=== PATIENT | female | born 1980 | race Caucasian/White ===

== ENCOUNTER → 2016-04-17 | Outpatient (CLI) | payer OTHER | LOC: FIMAGING 13:45 | PROVIDERS: ATTEND Midwife | DX: O09.522 Supervision of elderly multigravida, second trimester (principal); O09.812 Supervision of pregnancy resulting from assisted reproductive technology, second trimester; Z3A.21 21 weeks gestation of pregnancy ==

== ENCOUNTER → 2016-06-26 | Outpatient (CLI) | payer OTHER | LOC: FIMAGING 09:35 | PROVIDERS: ATTEND Midwife | DX: O09.523 Supervision of elderly multigravida, third trimester (principal); O09.813 Supervision of pregnancy resulting from assisted reproductive technology, third trimester; Z3A.31 31 weeks gestation of pregnancy ==

== ENCOUNTER 2016-08-22 16:30 | Inpatient (IN) | payer OTHER ==
[2016-08-22] MEDS ORDERED: EPSOM SALT 454 GM TP PRN (17:08)
[2016-08-22] MEDS ORDERED: OXYTOCIN/RINGERS LACTATE 1,000 ML IV PRN (17:08)
[2016-08-22] MEDS ORDERED: TERBUTALINE SULFATE 1 MG/ML VIAL IV PRN (17:08)
[2016-08-22] MEDS ORDERED: OLIVE OIL 118 ML BTL MISC PRN (17:08)
[2016-08-22] MEDS ORDERED: LR 1,000 ML IV PRN (17:08)
[2016-08-22] MEDS ORDERED: OLIVE OIL 118 ML BTL ONE (17:31)
[2016-08-22] MEDS ORDERED: AMMONIA AROMATIC 1 EACH AMP IH ONE (17:31)
[2016-08-22] MEDS ORDERED: LIDOCAINE 1% 300 MG/30 ML SDV ONE (17:31)
[2016-08-22] MEDS ORDERED: TERBUTALINE SULFATE 1 MG/ML VIAL ONE (17:31)
[2016-08-22] MEDS ORDERED: MISOPROSTOL 200 MCG TAB ONE (17:32)
--- NOTE | 2016-08-22 18:02 | PDGENHP ---
History and Physical - Chief Complaint 35 y.o. at 39 5/7 weeks for IOL - History of Present Illness 35 y.o. female for elective IOL History Information - Allergies/Home Medication List Allergies/Adverse Reactions: No Known Allergies Allergy (Unverified 02/17/14 17:21) Home Medications: Doxylamine Succinate [Unisom Sleep Aid] 25 mg PO 08/22/16 [Last Taken Unknown] Vit27&Calcium/Iron/FA [] 08/22/16 [Last Taken Unknown] I have personally reviewed and updated: family history, medical history, social history, surgical history - Past Medical History Additional medical history: depression - Surgical History Reports: no pertinent surgical hx Additional surgical history: wisdom teeth removal - Family History Positive for: cancer, vascular disease Additional family history: depression - Social History Smoking Status: Never smoked Alcohol Use: None Drug Use: None Review of Systems ROS: 10pt was reviewed & negative except for what was stated in HPI & below Constitutional: Reports: no symptoms EENMT: Reports: no symptoms Cardiac: Reports: no symptoms Respiratory: Reports: no symptoms Gastrointestinal: Reports: no symptoms Genitourinary: Reports: no symptoms Muscolosketal: Reports: no symptoms Skin: Reports: no symptoms Neurological: Reports: no symptoms Hematologic/Lymphatic: Reports: no symptoms Immunologic/Allergy: Reports: no symptoms Physical Exam Constitutional: no apparent distress Eyes: PERRL Ears, Nose, Mouth, Throat: hearing normal Cardiovascular: regular rate and rhythym, no murmur, rub, or gallop Respiratory: no respiratory distress, clear to auscultation Gastrointestinal: soft, non-tender abdomen Genitourinary: no bladder fullness, no bladder tenderness Skin: warm, normal color Musculoskeletal: full muscle strength Neurologic: AAOx3, sensation intact bilaterally Psychiatric: interacting appropriately Assessment & Plan Assessment: 35 y.o. at 39 5/7 weeks for IOL VSS- afebrile. NST-reactive CAT I SVE- 1.5/50/-3 IBOW. GBS NEG Plan: Admit to L&D for IOL. Melchor bulb placed in office. VS and EFM per protocol Begin pitocin for IOL at 0400 AM 08/23/16 Anticipate .
[2016-08-22] MEDS ORDERED: CALCIUM CARBONATE 500 MG CHEWABLE TAB PO PRN (18:55)
[2016-08-22] MEDS ORDERED: ZOLPIDEM TARTRATE 5 MG TAB PO PRN (18:55)
[2016-08-22] MEDS ORDERED: ACETAMINOPHEN 325 MG TAB PO PRN (18:55)
[2016-08-22] MEDS ORDERED: diphenhydrAMINE 25 MG CAP PO PRN (18:57)
[2016-08-22] MEDS ORDERED: UNISOM PO PRN (20:19)
[2016-08-22] MEDS ORDERED: DICLEGIS PO PRN (20:20)
[2016-08-22 21:02] LABS: % IMMATURE GRANULYOCYTES 0.7 % (0.0-1.1); ABSOLUTE IMMATURE GRANULOCYTES 0.09 10^3/uL (0.00-0.10); ADD DIFF? NO; ADD MORPH? NO; ADD SCAN? NO; ATYPICAL LYMPHOCYTE FLAG 0 (0-99); FRAGMENT RBC FLAG 0 (0-99); HEMATOCRIT 34.1 % (38.0-47.0); HEMOGLOBIN 11.4 g/dL (12.6-16.3); LEFT SHIFT FLG 0 (0-99); LIPEMIA HEMOLYSIS FLAG 80 (0-99); MEAN CELL HEMOGLOBIN 28.1 pg (27.9-34.1); MEAN CELL HEMOGLOBIN CONCENTR. 33.4 g/dL (32.4-36.7); MEAN CELL VOLUME 84.2 fL (81.5-99.8); MEAN PLATELET VOLUME 10.1 fL (8.7-11.7); PLATELET CLUMPS FLAG 0 (0-99); PLATELET COUNT 178 10^3/uL (150-400); RED BLOOD CELL COUNT 4.05 10^6/uL (4.18-5.33); RED CELL DISTRIBUTION WIDTH 14.2 % (11.5-15.2)
[2016-08-22] MEDS ORDERED: DOXYLAMINE SUCCINATE 25 MG PO PRN (21:04)
[2016-08-23] MEDS ORDERED: OXYTOCIN/LR *STANDARD DOSE PROTOCOL IV SCH (04:00)
--- NOTE | 2016-08-23 09:45 | OBPROG ---
OBG Labor Progress Note Assessment/Plan: Assessment: 35 yo @ 40 0/7, admitted for IOL Plan: 08/23/16 09:43 FWB reassuring. GBS neg. Desires epidrual. Subjective: 35 yo @ 40 0/7, admitted for IOL Objective: 08/22/16 20:51 Patient ABO/Rh O POSITIVE 08/22/16 20:51 VSS - SVE Dilation (cm): 4 Effacement (%): 75 Station: -1 - Procedures Non-surgical Procedures: Amniotomy Oxytocin Orders Assessment - Pre-Induction/Augmentation Assessment Gestational Age: 39 week(s) and 6 day(s) ICD10 Worksheet Patient Problems: Problems Problem Status Onset Elective induction of labor planned Acute
[2016-08-23] MEDS ORDERED: fentaNYL 2MCG/ML/BUP 0.1% RTU 100 ML BAG EP ONE (10:05)
[2016-08-23] MEDS ORDERED: BUPIVACAINE 0.25% 30 ML SDV ONE (10:05)
[2016-08-23] MEDS ORDERED: PHENYLEPHRINE HCL 100 MCG/ML SYR ONE (10:05)
--- NOTE | 2016-08-23 11:21 | PREANESOB ---
Obstetric Pre-Anesthesia Info - General Info Proposed Procedure: Labor and delivery with pitocin. : 1 Para: 0 WBD: 40 - Info Status: Full Term Monitors: External FHR Baseline (bpm): 140 FHR Pattern: Reassuring - Labor Status Cervical Dilation per last OB SVE: 4 Station per last OB SVE: -1 Pitocin: In Use Indications for Labor Analgesia: Induction of Labor, Pain Control Labor Epidural: Proposed Anesthesia ROS: IVF . Allergies/Adverse Reactions: Allergy/AdvReac Type Severity Reaction Status Date / Time No Known Allergies Allergy Unverified 08/22/16 18:54 Home Medications: Medication Instructions Recorded B12/Levomefolate Calcium/B-6 1 each PO 08/22/16 [Foltx Tablet] Doxylamine Succinate [Unisom Sleep 25 mg PO 08/22/16 Aid] Doxylamine/Pyridoxine HCl (B6) 2 each PO DAILY 08/22/16 [Diclegis Dr 10-10 mg Tablet] Vit27&Calcium/Iron/FA 1 tab PO DAILY 08/22/16 [] Visit Medications: Generic Name Dose Route Start Last Admin Trade Name Freq PRN Reason Stop Dose Admin Acetaminophen 650 mg 08/22/16 18:55 Tylenol PO 02/18/17 18:54 Q6 PRN Pain, Mild Calcium Carbonate 500 - 1,000 mg 08/22/16 18:55 Tums PO 02/18/17 18:54 Q4 PRN GERD Diphenhydramine HCl 25 mg 08/22/16 18:57 Benadryl PO 02/18/17 18:56 HS PRN Sleep/Insomnia Lactated Ringer's 1,000 mls @ 0 mls/hr 08/22/16 17:08 08/23/16 04:54 Lr IV 02/18/17 17:07 1,000 mls PRN PRN Administration SEE PROTOCOL CONDITIONS Protocol Per Protocol Oxytocin/Lactated Ringer's 1,000 mls @ 150 mls/hr 08/22/16 17:08 Pitocin 20 Units/Lr (Premix) IV PRN PRN Post- bleeding Oxytocin/Lactated Ringer's 500 mls @ 0 mls/hr 08/23/16 04:00 08/23/16 04:54 Pitocin 30 Units/Lr (Premix) IV 02/19/17 03:59 500 mls CONT ARY Administration Protocol Per Protocol Ibuprofen 600 mg 08/22/16 17:08 Motrin PO 02/18/17 17:07 Q6HRS PRN post , inflammation Magnesium Sulfate 454 gm 08/22/16 17:08 Epsom Salt TP 02/18/17 17:07 Q1H PRN perineal discomfort Miscellaneous Medication 0 ea 08/22/16 20:20 Non-Formulary PO 02/18/17 20:19 Q8H PRN Nausea/Vomiting, Use 1st Miscellaneous Medication 1 ea 08/22/16 21:04 08/22/16 21:37 Non-Formulary PO 02/18/17 20:18 25 mg HS PRN Administration INSOMNIA [place] Oil 118 ml 08/22/16 17:08 Sweet Oil MISC 02/18/17 17:07 ONCE PRN preneal massage Terbutaline Sulfate 0.25 mg 08/22/16 17:08 Brethine IV 02/18/17 17:07 ONCE PRN Tachysystole Zolpidem Tartrate 5 mg 08/22/16 18:55 Ambien PO 02/18/17 18:54 HS PRN Sleep/Insomnia Discontinued Medications Generic Name Dose Route Start Last Admin Trade Name Freq PRN Reason Stop Dose Admin Ammonia (Aromatic Spirit) Confirm 08/22/16 17:31 Ammonia Aromatic Administered 08/22/16 17:32 Dose 1 each IH .STK-MED ONE Bupivacaine HCl Confirm 08/23/16 10:05 Sensorcaine 0.25% Sdv Administered 08/23/16 10:06 Dose 30 ml .ROUTE .STK-MED ONE Fentanyl/Bupivacaine HCl Confirm 08/23/16 10:05 Fentanyl/Bupivacaine/Ns 2 Mcg/Ml 0.1% (Premix Administered 08/23/16 10:06 Dose 100 ml EP .STK-MED ONE Lidocaine HCl Confirm 08/22/16 17:31 Lidocaine Hcl 1% Administered 08/22/16 17:32 Dose 300 mg .ROUTE .STK-MED ONE Miscellaneous Medication 0 ea 08/22/16 20:19 Non-Formulary PO 02/18/17 20:18 HS PRN INSOMNIA Misoprostol Confirm 08/22/16 17:32 Cytotec Administered 08/22/16 17:33 Dose 1,000 mcg .ROUTE .STK-MED ONE [place] Oil Confirm 08/22/16 17:31 Sweet Oil Administered 08/22/16 17:32 Dose 118 ml .ROUTE .STK-MED ONE Phenylephrine HCl Confirm 08/23/16 10:05 Neosynephrine Administered 08/23/16 10:06 Dose 1,000 mcg .ROUTE .STK-MED ONE Terbutaline Sulfate Confirm 08/22/16 17:31 Brethine Administered 08/22/16 17:32 Dose 1 mg .ROUTE .STK-MED ONE - Anesthesia History Response to Local Anesthetics: Normal Anesthesia & Operative History: No Prior Problems Family Anesthesia History: Negative - Social History Substance Use/Abuse: Denies - Focused Exam Blood Pressure: 117/68 Heart Rate: 90 Height/Weight (Nursing): Height 170.18 cm Weight 95.708 kg Airway: No abnormalities Physical Exam: Within normal limits. ASA Status: II Labs: 08/22/16 20:51 Patient ABO/Rh O POSITIVE 08/22/16 20:51 - Plan Consent Signed and on Chart: Yes Patient/Guardian Understands and Agrees to Plan: Yes Urgent/Emergent Case: Felisa morrison completed preop but documented later for safe timely pt care
[2016-08-23] MEDS ORDERED: PHENYLEPHRINE HCL 100 MCG/ML SYR IVP PRN (11:29)
[2016-08-23] MEDS ORDERED: ONDANSETRON 4 MG/2 ML VIAL IVP PRN (11:29)
--- NOTE | 2016-08-23 11:29 | POSTANESTH ---
Post Anesthetic Evaluation Cardiovascular Status: Normal, Stable Respiratory Status: Normal, Stable, Similar to Pre-op Cond. Level of Consciousness/Mental Status: Can Participate in Eval, Alert and Oriented Pain Control: Adequate, Prn Tx Ordered Nausea/Vomiting Control: Adequate, Prn Tx Ordered Complications Possibly Related to Anesthesia: None Noted
[2016-08-23] MEDS ORDERED: LR 500 ML IV SCH (11:30)
[2016-08-23] MEDS ORDERED: fentaNYL 2MCG/ML/BUP 0.1% RTU 100 ML EP SCH (11:30)
--- NOTE | 2016-08-23 12:40 | OBPROG ---
OBG Labor Progress Note Assessment/Plan: Assessment: 35 yo @ 40 0/7, admitted for IOL Plan: FWB reassuring. GBS neg. Expect . 08/23/16 12:39 Subjective: 35 yo @ 40 0/7, admitted for IOL Objective: 08/22/16 20:51 Patient ABO/Rh O POSITIVE 08/22/16 20:51 Temp Pulse Resp BP Pulse Ox 90 117/68 08/23/16 11:28 08/23/16 11:28 vss - SVE Dilation (cm): 6 Effacement (%): 90 Station: 0 Rodríguez Current Contraction Pattern: Regular FHR (bpm): 130 FHR Pattern Variability: Moderate FHR Category: 2 Membranes: AROM Amniotic Fluid Color: Meconium Stained - Procedures Non-surgical Procedures: Amniotomy, IUPC Oxytocin Orders Assessment - Pre-Induction/Augmentation Assessment Gestational Age: 39 week(s) and 6 day(s) ICD10 Worksheet Patient Problems: Problems Problem Status Onset Elective induction of labor planned Acute
[2016-08-23] MEDS ORDERED: GENTAMICIN PHARMACY TO DOSE MISC SCH (15:15)
[2016-08-23] MEDS ORDERED: AMPICILLIN 500 MG SDV IV SCH (15:15)
[2016-08-23] MEDS: AMPICILLIN SODIUM 2 GM in NS 100 ML IV SCH ×2 (15:55→23:18)
[2016-08-23] MEDS: D5W IV SCH (16:30)
[2016-08-23] MEDS: GENTAMICIN SULFATE IV SCH (16:30)
[2016-08-23] MEDS ORDERED: METHYLERGONOVINE MAL 0.2 MG/ML INJ ONE (17:40)
[2016-08-23] MEDS ORDERED: fentaNYL 100 MCG/2 ML INJ ONE (18:21)
[2016-08-23] MEDS ORDERED: LIDO/EPI 2% **for epidural** 20 ML SDV ONE (18:22)
[2016-08-23] MEDS ORDERED: HEMABATE 250 MCG/1 ML AMP IM ONE ×2 (18:51→19:13)
[2016-08-23] MEDS ORDERED: OXYTOCIN 100 UNITS/10 ML VIAL ONE (19:07)
[2016-08-23] MEDS ORDERED: HYDROCORTISONE 0.5% CREAM TP PRN (19:12)
[2016-08-23] MEDS ORDERED: METHYLERGONOVINE MAL 0.2 MG/ML INJ IM ONE (19:12)
[2016-08-23] MEDS ORDERED: SIMETHICONE 80 MG TAB CHEW PO PRN (19:12)
[2016-08-23] MEDS ORDERED: MISOPROSTOL 200 MCG TAB PR ONE (19:13)
[2016-08-23] MEDS ORDERED: DIPHENOXYLATE/ATROPINE LOMOTIL 1 TAB PO PRN (19:13)
--- NOTE | 2016-08-23 19:22 | OBDEL ---
Info Type: Vaginal GBS+: No Indications for Delivery: Elective Vaginal Delivery - Labor and Delivery Onset of Contractions Date: 08/23/16 Onset of Contractions Time: :30 Onset of Contractions Type: Induced Rupture of Membranes Date: 08/23/16 Rupture of Membranes Time: : Rupture of Membranes Type: Artificial Amniotic Fluid Color: Meconium Stained Dilation Complete Date: 08/23/16 Dilation Complete Time: 15:00 Placenta Delivery Date: 08/23/16 Non-surgical Procedures: Amniotomy, IUPC Laceration: 3rd Degree Repair: 2-0, 3-0, 4-0, Vicryl Vaginal Sponge Count Correct: Yes Vaginal Needle Count Correct: Yes Vaginal Sweep Performed: Yes EBL: 800 Ml Delivery Events: Retained Placenta Delivery Comment: Pt progressed to complete, complete and plus +2 station, complained of maternal exhaustion. Patient agreed to vacuum extraction. With 6 pulls, 3 popoffs, the patient delivered a viable male infant with apgars of 8,9. The patient had cord evulsion and adherent placenta and required manual extraction and curretage , please see separate operative note for details. Total EBL for 800 ml, complete 3rd degree laceration repaired in the usual fashion. - Medications Labor Augmentation/Induction Methods Used: Pitocin Labor Augmentation/Induction Indication: Elective Assissted Delivery Assisted Delivery Type: Vacuum Station: +2 Pop offs (Total): 3 Pulls (Total): 6 Data Rodríguez Delivery Date: 08/23/16 Delivery Time: 17:55 CANDELARIO: 08/23/16 Gestational Age: 40 week(s) and 0 day(s) Sex of : Male Score (1 Min): 8 Score (5 Min): 9 ICD10 Worksheet Patient Problems: Problems Problem Status Onset Elective induction of labor planned Acute
--- NOTE | 2016-08-23 19:24 | OBGCSDC ---
General Delivery Information - General Info : 1 Para: 0 Delivery Physician/CNM: Yelena Shook Admission Date: 08/22/16 Labs: Patient ABO/Rh O POSITIVE 08/22/16 20:51 Hct 34.1 % (38.0-47.0) L 08/22/16 20:51 Vaginal - Diagnosis Labor: Induced Rupture of Membranes Type: Artificial Amniotic Fluid Color: Meconium Stained Laceration: 3rd Degree Repair: 2-0, 3-0, 4-0, Vicryl Delivery Events: Retained Placenta - Operations/Procedures Assisted Delivery Type: Vacuum Non-surgical Procedures: Amniotomy, IUPC - Hospital Course Antepartum: IVF Intrapartum: maternal exhaustion requiring vacuum assistance, chorioamnitis : adherent placenta, requiring d&c - Delivery Type: Vaginal Non-surgical Procedures: Amniotomy, IUPC EBL: 800 Ml [place] Data Rodríguez Delivery Date: 08/23/16 Delivery Time: 17:55 CANDELARIO: 08/23/16 Gestational Age: 40 week(s) and 0 day(s) Sex of Infant: Male Score (1 Min): 8 Score (5 Min): 9
[2016-08-23 19:41] LABS: % IMMATURE GRANULYOCYTES 1.2 % (0.0-1.1); ABSOLUTE IMMATURE GRANULOCYTES 0.22 10^3/uL (0.00-0.10); ADD DIFF? NO; ADD MORPH? NO; ADD SCAN? NO; ATYPICAL LYMPHOCYTE FLAG 0 (0-99); FRAGMENT RBC FLAG 0 (0-99); HEMATOCRIT 29.9 % (38.0-47.0); HEMOGLOBIN 10.1 g/dL (12.6-16.3); LEFT SHIFT FLG 20 (0-99); LIPEMIA HEMOLYSIS FLAG 90 (0-99); MEAN CELL HEMOGLOBIN 28.8 pg (27.9-34.1); MEAN CELL HEMOGLOBIN CONCENTR. 33.8 g/dL (32.4-36.7); MEAN CELL VOLUME 85.2 fL (81.5-99.8); PLATELET CLUMPS FLAG 0 (0-99); PLATELET COUNT 126 10^3/uL (150-400); RED BLOOD CELL COUNT 3.51 10^6/uL (4.18-5.33); RED CELL DISTRIBUTION WIDTH 13.9 % (11.5-15.2)
[2016-08-23] MEDS ORDERED: MEPERIDINE 25 MG/ML SYR IVP PRN (19:52)
[2016-08-23] MEDS ORDERED: fentaNYL 100 MCG/2 ML INJ IVP PRN (19:52)
[2016-08-23] MEDS ORDERED: METOCLOPRAMIDE 10 MG/2 ML VIAL IVP PRN (19:52)
[2016-08-23] MEDS: IBUPROFEN 600 MG TAB PO PRN (20:03)
[2016-08-23] MEDS: HYDROCODONE/APAP 5/325 TAB PO PRN (22:15)
--- NOTE | 2016-08-23 22:36 | GOP ---
[f rep st] OPERATIVE REPORT DATE OF OPERATION: 08/23/2016 SURGEON: Yelena Saha MD PREOPERATIVE DIAGNOSIS: Retained placenta. POSTOPERATIVE DIAGNOSIS: Retained placenta. PROCEDURE PERFORMED: Manual extraction of the placenta and uterine curettage. FINDINGS: retained placenta, no evidence of retained placenta after manual extractions ESTIMATED BLOOD LOSS: 400 mL. INDICATIONS: The patient is a 35-year-old G1, P1 female, who delivered via vacuum-assisted vaginal delivery, who had adherent and retained placenta after delivery, and recommended proceeding to the OR for removal of placenta and curettage, which the patient agreed to. DESCRIPTION OF PROCEDURE: The patient was taken to the operating room where she was prepped and draped in normal sterile fashion in the high dorsal lithotomy position. A surgical time-out was performed verifying the patient's name, date of , planned procedure, and site. A Melchor catheter was placed in the patient's bladder prior to the procedure. A short weighted speculum was placed in the patient's vagina. The placenta was manually removed and ultrasound was performed after extraction to verify there was no retained tissue , which the ultrasound appeared clear, and limited curettage took place as well. Total EBL was 400 mL. The patient also had finish of the repair of a 3rd -degree laceration. All counts were correct x2. The patient tolerated the procedure well and was stable to recovery room. COMPLICATIONS: None. DISPOSITION: Stable to recovery room. /[id number]/MODL MTDD
[2016-08-24] MEDS: HYDROCODONE/APAP 5/325 TAB PO PRN ×2 (02:55→07:09)
[2016-08-24] MEDS: IBUPROFEN 600 MG TAB PO PRN ×4 (02:56→21:58)
[2016-08-24 05:59] LABS: % IMMATURE GRANULYOCYTES 0.7 % (0.0-1.1); ABSOLUTE IMMATURE GRANULOCYTES 0.12 10^3/uL (0.00-0.10); ADD DIFF? NO; ADD MORPH? NO; ADD SCAN? NO; ATYPICAL LYMPHOCYTE FLAG 0 (0-99); FRAGMENT RBC FLAG 0 (0-99); HEMATOCRIT 24.8 % (38.0-47.0); HEMOGLOBIN 8.4 g/dL (12.6-16.3); LEFT SHIFT FLG 10 (0-99); LIPEMIA HEMOLYSIS FLAG 90 (0-99); MEAN CELL HEMOGLOBIN 28.7 pg (27.9-34.1); MEAN CELL HEMOGLOBIN CONCENTR. 33.9 g/dL (32.4-36.7); MEAN CELL VOLUME 84.6 fL (81.5-99.8); MEAN PLATELET VOLUME 9.9 fL (8.7-11.7); PLATELET CLUMPS FLAG 0 (0-99); PLATELET COUNT 150 10^3/uL (150-400); RED BLOOD CELL COUNT 2.93 10^6/uL (4.18-5.33); RED CELL DISTRIBUTION WIDTH 14.1 % (11.5-15.2)
[2016-08-24] MEDS: AMPICILLIN SODIUM 2 GM in NS 100 ML IV SCH ×2 (06:31→14:23)
[2016-08-24] MEDS: DOCUSATE SODIUM 100 MG CAP PO PRN ×2 (09:23→21:58)
[2016-08-24 12:44] LABS: HEMATOCRIT 25.3 % (38.0-47.0); HEMOGLOBIN 8.5 g/dL (12.6-16.3); MEAN CELL HEMOGLOBIN 28.4 pg (27.9-34.1); MEAN CELL HEMOGLOBIN CONCENTR. 33.6 g/dL (32.4-36.7); MEAN CELL VOLUME 84.6 fL (81.5-99.8); RED BLOOD CELL COUNT 2.99 10^6/uL (4.18-5.33); RED CELL DISTRIBUTION WIDTH 14.4 % (11.5-15.2)
[2016-08-24 13:01] LABS: ANION GAP 3 mEq/L (8-16); CALCIUM 8.4 mg/dL (8.5-10.4); CARBON DIOXIDE 25 mEq/l (22-31); CHLORIDE 104 mEq/L (97-110); CREATININE 0.6 mg/dL (0.6-1.0); GLOMERULAR FILTRATION RATE > 60; GLUCOSE 86 mg/dL (70-100); POTASSIUM 4.1 mEq/L (3.5-5.2); SODIUM 132 mEq/L (134-144)
[2016-08-24] MEDS: GENTAMICIN SULFATE IV SCH (16:46)
[2016-08-24] MEDS: D5W IV SCH (16:46)
--- NOTE | 2016-08-24 19:07 | OBPP ---
Progress Note Assessment/Plan: Assessment: PPD#1 s/p VAVD c/b 3rd degree laceration, retained placenta s/p D&C, chorio, PPH EBL 800 ml VSS, UOP appropriate, Hgb stable at 8.5 Currently no indication for transfusion No fevers Recovering appropriately Plan: D/C [place] cath today Pain medication prn Pumping/ Monitor for symptomatic anemia D/C antibiotics Likely not ready for discharge home until PPD#3 given the complications as noted above 08/24/16 19:05 Subjective: Tired and sore, but slowly starting to feel better. Has ambulated. Bleeding appropriate. [place] in place. Objective: 08/24/16 12:25 08/24/16 12:25 Patient ABO/Rh O POSITIVE 08/22/16 20:51 Temp Pulse Resp BP Pulse Ox 36.7 C 89 18 90/57 L 93 08/24/16 16:00 08/24/16 07:00 08/24/16 07:00 08/24/16 07:00 08/24/16 02:58 Gen: alert, no acute distress Resp: unlabored CV: RRR Abd: soft, appropriately tender, nondistended, uterus firm 1 cm below U Ext: 2+ edema to thighs, symmetric, warm/dry Vital Signs Temp Pulse Resp BP Pulse Ox 36.7 C 89 18 90/57 L 93 08/24/16 16:00 08/24/16 07:00 08/24/16 07:00 08/24/16 07:00 08/24/16 02:58 Laboratory Results 08/24/16 12:25 08/24/16 12:25 08/23/16 08/24/16 08/25/16 05:59 05:59 05:59 Intake Total 130 360 Output Total 1450 2050 Balance -1320 -1690 Uterine Position/Fundal Height: Umbilicus -1 Uterine Tone: Firm
[2016-08-25] MEDS: IBUPROFEN 600 MG TAB PO PRN ×4 (04:10→23:21)
[2016-08-25] MEDS: DOCUSATE SODIUM 100 MG CAP PO PRN (09:15)
--- NOTE | 2016-08-25 09:40 | OBPP ---
Progress Note Assessment/Plan: Assessment: PPD#2 s/p VAVD c/b 3rd degree laceration, retained placenta s/p D&C, chorio, PPH EBL 800 ml VSS, UOP appropriate, Hgb stable at 8.5 No fevers Recovering appropriately Urinary incontinence s/p [place] removal, slowly improving. No concern for UTI as she has been on amp/gent Rh pos Plan: Pain medication prn Pumping/ Monitor for symptomatic anemia s/p antibiotics Discussed incontinence should improve slowly as swelling goes down and sensation returns, reviewed kegel exercises, if not improved by 6 weeks can initiate pelvic PT Not ready for discharge home until PPD#3 given the complications as noted above , still needs help with and to increase ambulation Subjective: Feeling better and better every day. Biggest concern is lack of ability to control urine after catheter is out. Just this morning was able to make it to bathroom, but previously hasn't been able to make it. Still feels some lack of sensation in pelvic area. BF going well. No heavy bleeding. Lower extremity edema improving. Hoping baby will be ready to to go home in 1-2 days Objective: 08/24/16 12:25 08/24/16 12:25 Patient ABO/Rh O POSITIVE 08/22/16 20:51 Temp Pulse Resp BP Pulse Ox 36.9 C 93 20 112/68 94 08/25/16 08:40 08/25/16 08:40 08/25/16 08:40 08/25/16 08:40 08/25/16 08:40 gen: NAD, alert, awake Resp: unlabored CV: RRR Abd: soft, nontender, uterus firm below U Ext: 2+ edema to calves
[2016-08-26] MEDS: IBUPROFEN 600 MG TAB PO PRN ×2 (05:51→12:55)
[2016-08-26 08:44] VITALS: BP 105/66; PULSE 79; RESP 17; TEMP 97.2; O2SAT 95
--- NOTE | 2016-08-26 10:05 | OBGCSDC ---
General Delivery Information - General Info : 1 Para: 1 Delivery Physician/CNM: Yelena Shook Admission Date: 08/22/16 Labs: Patient ABO/Rh O POSITIVE 08/22/16 20:51 Hct 25.3 % (38.0-47.0) L 08/24/16 12:25 Vaginal - Diagnosis Labor: Induced Rupture of Membranes Type: Artificial Amniotic Fluid Color: Meconium Stained Laceration: 3rd Degree Repair: 2-0, 3-0, 4-0, Vicryl Delivery Events: Post Hemorrhage, Retained Placenta - Operations/Procedures Assisted Delivery Type: Vacuum Non-surgical Procedures: Amniotomy, IUPC L&D Analgesia/Anesthesia Type: Epidural - Hospital Course Antepartum: Uncomplicated first . elective induction at 39 5/7 weeks Intrapartum: VAVD c/b 3rd degree laceration, retained placenta s/p D&C, chorio, PPH EBL 800 ml : Home PPD#3. Received abx x 24 hours and remained afebrile. Hct stable at 25, asymptomatic. Will supplement until milk comes in. Slow improvement in lower extremity edema which was also present prior to delivery. Urinary incontinence s /p removal of [place] catheter, slowly improving, able to make it to bathroom with timed voiding. - Delivery Non-surgical Procedures: Amniotomy, IUPC L&D Analgesia/Anesthesia Type: Epidural [place] Data Rodríguez Delivery Date: 08/23/16 Delivery Time: 17:58 CANDELARIO: 08/23/16 Gestational Age: 40 week(s) and 3 day(s) Sex of : Male Weight (gm): 3870 kg Score (1 Min): 8 Score (5 Min): 9 Discharge Information - Discharge Information Discharge Medications: Iron, Ibuprofen, Other (Specify) (stool softener) Condition: Good Instruction/Follow Up: Two Weeks Discharge Physician/CNM: Margy Bhandari
[2016-08-26] MEDS: DOCUSATE SODIUM 100 MG CAP PO PRN (12:55)
== END 2016-08-26 15:53 | disposition home or self-care (01) | DRG 767 ==
LOC: FLD 16:30 → FOB 08-23 20:27
PROVIDERS: ADMIT Midwife; ATTEND Midwife
PROC: 3E033VJ Introduction of Other Hormone into Peripheral Vein, Percutaneous Approach (ICD-10-PCS; principal; 2016-08-23)
PROC: 0DQR0ZZ Repair Anal Sphincter, Open Approach (ICD-10-PCS; principal; 2016-08-23)
PROC: 10D17ZZ Extraction of Products of Conception, Retained, Via Natural or Artificial Opening (ICD-10-PCS; principal; 2016-08-23)
PROC: 10907ZC Drainage of Amniotic Fluid, Therapeutic from Products of Conception, Via Natural or Artificial Opening (ICD-10-PCS; principal; 2016-08-23)
PROC: 10D07Z6 Extraction of Products of Conception, Vacuum, Via Natural or Artificial Opening (ICD-10-PCS; principal; 2016-08-23)
DX: O41.1230 Chorioamnionitis, third trimester, not applicable or unspecified (principal); O70.20 Third degree perineal laceration during delivery, unspecified; O72.0 Third-stage hemorrhage; Z37.0 Single live birth; Z3A.40 40 weeks gestation of pregnancy; O75.81 Maternal exhaustion complicating labor and delivery
CPT/HCPCS: J0290; J2210; J2370; J2405; J2590; J3010; J3105

== ENCOUNTER 2016-11-02 16:08 | Emergency (ER) | payer OTHER ==
[2016-11-02] MEDS ORDERED: FAMOTIDINE 20 MG/NACL 50 ML IV ONE (16:12)
[2016-11-02] MEDS ORDERED: NS 1,000 ML IV ONE (16:12)
[2016-11-02] MEDS ORDERED: HYDROmorphONE/DILAUDID 1 MG/ML INJ IVP ONE (16:12)
[2016-11-02] MEDS ORDERED: ONDANSETRON 4 MG/2 ML VIAL IVP ONE (16:12)
[2016-11-02 16:18] VITALS: RESP 18; O2SAT 97
--- NOTE | 2016-11-02 16:41 | EDPHY ---
H & P Time Seen by Provider: 11/02/16 16:12 HPI/ROS: HPI Abdominal pain. 35-year-old female by private vehicle from the office of her primary care physician at [facility]. Patient is 10 weeks . Normal spontaneous vaginal delivery. She did require a D and C secondary to a retained placenta. She presents to the emergency department from Clinic with complaint of right mid abdominal pain which started late Saturday night early morning and has persisted since that time and been intermittent in intensity. She reports the pain was worse today associated with some nausea but no vomiting. She was sent to our emergency department to be evaluated for possible appendicitis verses gallbladder pathology. She denies any prior abdominal surgical history. She had a bowel movement this morning which was described as normal and with no relief in her discomfort. No bloody or melenic stool. No fever. No urinary complaints. ROS: Constitutional: No fever, no chills. No weakness. Eyes: No discharge. No changes in vision. ENT: No sore throat. No nasal congestion or rhinorrhea. Respiratory: No cough. No shortness of breath. Cardiac: No chest pain, no palpitations. Gastrointestinal: As above, no diarrhea. Genitourinary: No hematuria. No dysuria or increased frequency with urination. Musculoskeletal: No back pain. No neck pain. No myalgias or arthralgias. Skin: No rashes. Neurological: No headache. No focal weakness or altered sensation. Past medical history: As above. Social history: . Nonsmoker. No alcohol. Physical Exam: General Appearance: Alert, no distress. This patient is responding to questions appropriately and in full sentences. This patient appears well- hydrated and well-nourished. Eyes: Pupils equal and round no pallor or injection. No lid edema, erythema or injection. Respiratory: There are no retractions, lungs are clear to auscultation with good air movement bilaterally. Cardiovascular: Regular rate and rhythm. No murmur. Gastrointestinal: Abdomen is soft with moderate right lower quadrant tenderness on palpation, she is not guarding, no masses, bowel sounds normal. No focal tenderness at McBurney's point. No Nicholson sign. Neurological: Motor sensory function is grossly intact. Cranial nerves are normal. Gait is normal. Skin: Warm and dry, no rashes. Musculoskeletal: Neck is supple and nontender. Extremities are symmetrical. All joints range without pain or impingement. Psychiatric: No agitation. No depression. Database: EKG: Imaging: CT abdomen and pelvis with IV contrast: There is some free fluid in the right cul-de-sac next to the right ovary indicative of probable ruptured ovarian cyst. The appendix is well visualized and is normal. No evidence of gallbladder pathology. Study is otherwise normal. Results were discussed with staff radiologist Dr. Tanvir Brown. Procedures: Emergency department course: IV placed. She was placed on a monitor. She was started on IV normal saline with 500 cc to 1 L to be given over the next hour. She was initially given 0.5 mg of IV hydromorphone, 4 mg of IV Zofran and 20 mg of IV Pepcid. She will be sent for CT imaging to evaluate for appendicitis. She endorses this plan. 6:30 p.m., patient re-evaluated. Resting comfortably at this time. Her is in the room. Results of her blood work as well as CAT scan were discussed with her and her . Diagnosis of likely ruptured ovarian cyst discussed. She is feeling better at this time. Repeat exam she is soft with mild tenderness in the right adnexal area. She feels comfortable going home and I feel she is safe for discharge. Follow-up and return to emergency department precautions discussed with her. All of her questions were answered. She was discharged home in good condition with her . I discussed ibuprofen dosing. She will also receive a limited prescription for Haines if she requires additional pain medication as well as Zofran for nausea. Differential Diagnosis: The differential diagnosis on this patient includes but is not limited to appendicitis, ovarian cyst, ovarian torsion, volvulus, cholecystitis, biliary colic. This represents a partial list of diagnoses considered. These considerations are based on history, physical exam, past history, reassessment and diagnostic testing. Smoking Status: Never smoked Constitutional: Initial Vital Signs Temperature (C) 37.1 C 11/02/16 16:13 Heart Rate 100 11/02/16 16:13 Respiratory Rate 18 11/02/16 16:13 Blood Pressure 115/79 11/02/16 16:13 O2 Sat (%) 97 11/02/16 16:13 O2 Delivery Mode Room Air Allergies/Adverse Reactions: No Known Allergies Allergy (Unverified 08/22/16 18:54) Home Medications: Medication Instructions Recorded B12/Levomefolate Calcium/B-6 1 each PO 08/22/16 [Foltx Tablet] Doxylamine Succinate [Unisom Sleep 25 mg PO 08/22/16 Aid] Vit27&Calcium/Iron/FA 1 tab PO DAILY 08/22/16 [] Docusate Sodium [Colace 100 MG (*)] 100 mg PO BID PRN #60 cap 08/26/16 Ibuprofen [Motrin (*)] 600 mg PO Q6HRS PRN #60 tab 08/26/16 Hydrocodone/APAP 5/325 [[place]aines 1 - 2 tab PO Q4-6PRN PRN #7 tab 11/02/16 5/325 (*)] Ondansetron Odt [Zofran Odt 4 mg 4 mg PO Q4PRN PRN #10 tab 11/02/16 (*)] Medical Decision Making - Diagnostics Imaging Results: Imaging Impressions Abdomen CT 11/02/16 16:30 Impression: 1. Small amount of free fluid in the cul-de-sac. Might this patient have ruptured a small ovarian cyst? 2. Normal appendix and gallbladder. 3. Constipation Results called and discussed with Luis Gill MD, at 11/02/2016 18:16 General information for patients regarding this examination can be found at [email or web address]. If you have questions or comments about this report, please contact me at (hospital) or [phone] (cell). - Data Points Laboratory Results: Laboratory Results 11/02/16 16:40 11/02/16 16:40 11/02/16 11/02/16 11/02/16 16:40 16:40 16:40 WBC 11.00 10^3/uL H 10^3/uL (3.80-9.50) RBC 4.96 10^6/uL 10^6/uL (4.18-5.33) Hgb 13.9 g/dL g/dL (12.6-16.3) Hct 42.1 % % (38.0-47.0) MCV 84.9 fL fL (81.5-99.8) MCH 28.0 pg pg (27.9-34.1) MCHC 33.0 g/dL g/dL (32.4-36.7) RDW 13.3 % % (11.5-15.2) Plt Count 186 10^3/uL 10^3/uL (150-400) MPV 9.8 fL fL (8.7-11.7) Neut % (Auto) 70.5 % % (39.3-74.2) Lymph % (Auto) 21.4 % % (15.0-45.0) Ida % (Auto) 6.2 % % (4.5-13.0) Eos % (Auto) 1.3 % % (0.6-7.6) Baso % (Auto) 0.2 % L % (0.3-1.7) Nucleat RBC Rel Count 0.0 % % (0.0-0.2) Absolute Neuts (auto) 7.77 10^3/uL H 10^3/uL (1.70-6.50) Absolute Lymphs (auto) 2.35 10^3/uL 10^3/uL (1.00-3.00) Absolute Monos (auto) 0.68 10^3/uL 10^3/uL (0.30-0.80) Absolute Eos (auto) 0.14 10^3/uL 10^3/uL (0.03-0.40) Absolute Basos (auto) 0.02 10^3/uL 10^3/uL (0.02-0.10) Absolute Nucleated RBC 0.00 10^3/uL 10^3/uL (0-0.01) Immature Gran % 0.4 % % (0.0-1.1) Immature Gran # 0.04 10^3/uL 10^3/uL (0.00-0.10) Sodium 140 mEq/L mEq/L (134-144) Potassium 3.7 mEq/L mEq/L (3.5-5.2) Chloride 103 mEq/L mEq/L (97-110) Carbon Dioxide 24 mEq/l mEq/l (22-31) Anion Gap 13 mEq/L mEq/L (8-16) BUN 11 mg/dL mg/dL (7-23) Creatinine 0.6 mg/dL mg/dL (0.6-1.0) Estimated GFR > 60 Glucose 101 mg/dL H mg/dL (70-100) Calcium 9.2 mg/dL mg/dL (8.5-10.4) Total Bilirubin 0.8 mg/dL mg/dL (0.1-1.4) Conjugated Bilirubin 0.3 mg/dL mg/dL (0.0-0.5) Unconjugated Bilirubin 0.5 mg/dL mg/dL (0.0-1.1) AST 22 IU/L IU/L (14-46) ALT 33 IU/L IU/L (9-52) Alkaline Phosphatase 87 IU/L IU/L (38-126) Total Protein 6.8 g/dL g/dL (6.3-8.2) Albumin 4.1 g/dL g/dL (3.5-5.0) Lipase 87 IU/L IU/L (23-300) Beta HCG, Qual NEGATIVE Medications Given: Discontinued Medications Hydromorphone HCl (Dilaudid) 0.5 mg IVP EDNOW ONE Stop: 11/02/16 16:13 Last Admin: 11/02/16 16:51 Dose: 0.5 mg Sodium Chloride (Ns) 1,000 mls @ 0 mls/hr IV EDNOW ONE; Wide Open PRN Reason: Protocol Stop: 11/02/16 16:13 Last Admin: 11/02/16 16:44 Dose: 1,000 mls Famotidine/Sodium Chloride (Pepcid 20 Mg (Premix)) 50 mls @ 200 mls/hr IV EDNOW ONE Stop: 11/02/16 16:26 Last Admin: 11/02/16 16:49 Dose: 50 mls Ondansetron HCl (Zofran) 4 mg IVP EDNOW ONE Stop: 11/02/16 16:13 Last Admin: 11/02/16 16:48 Dose: 4 mg Departure - Departure Disposition: Home, Routine, Self-Care Clinical Impression: Abdominal pain, Ruptured ovarian cyst Condition: Good Instructions: Ruptured Ovarian Cyst (ED) Additional Instructions: Read and follow provided instructions. Follow-up with your primary care physician tomorrow as needed for re-evaluation. Take medication as prescribed. Ibuprofen dosin mg every 6 hours with meals for the next 3 days only. Take only as needed for pain. Haines/Percocet dosin-2 every 4-6 hours for pain[address] Do not drive on this medication. Take only as needed for pain. Return to the emergency department for worsening pain, vomiting, fever, blood in your stool or other serious concerns. Referrals: Taina Wilson MD [Primary Care Provider] - As per Instructions Prescriptions: Hydrocodone/APAP 5/325 [Haines 5/325 (*)] 1 - 2 tab PO Q4-6PRN PRN #7 tab PRN Reason: Pain, Moderate Ondansetron Odt [Zofran Odt 4 mg (*)] 4 mg PO Q4PRN PRN #10 tab PRN Reason: For Nausea & Vomiting
[2016-11-02 17:08] LABS: % IMMATURE GRANULYOCYTES 0.4 % (0.0-1.1); ABSOLUTE IMMATURE GRANULOCYTES 0.04 10^3/uL (0.00-0.10); ADD DIFF? NO; ADD MORPH? NO; ADD SCAN? NO; ATYPICAL LYMPHOCYTE FLAG 0 (0-99); FRAGMENT RBC FLAG 0 (0-99); HEMATOCRIT 42.1 % (38.0-47.0); HEMOGLOBIN 13.9 g/dL (12.6-16.3); LEFT SHIFT FLG 0 (0-99); LIPEMIA HEMOLYSIS FLAG 80 (0-99); MEAN CELL VOLUME 84.9 fL (81.5-99.8); MEAN PLATELET VOLUME 9.8 fL (8.7-11.7); PLATELET CLUMPS FLAG 0 (0-99); PLATELET COUNT 186 10^3/uL (150-400); RED BLOOD CELL COUNT 4.96 10^6/uL (4.18-5.33); RED CELL DISTRIBUTION WIDTH 13.3 % (11.5-15.2)
[2016-11-02 17:13] LABS: ALANINE AMINOTRANSFERASE 33 IU/L (9-52); ALBUMIN 4.1 g/dL (3.5-5.0); ALKALINE PHOSPHATASE 87 IU/L (38-126); ANION GAP 13 mEq/L (8-16); ASPARTATE AMINOTRANSFERASE 22 IU/L (14-46); BILIRUBIN,TOTAL 0.8 mg/dL (0.1-1.4); BILIRUBIN-CONJUGATED 0.3 mg/dL (0.0-0.5); BILIRUBIN-UNCONJUGATED 0.5 mg/dL (0.0-1.1); CALCIUM 9.2 mg/dL (8.5-10.4); CARBON DIOXIDE 24 mEq/l (22-31); CHLORIDE 103 mEq/L (97-110); CREATININE 0.6 mg/dL (0.6-1.0); GLOMERULAR FILTRATION RATE > 60; GLUCOSE 101 mg/dL (70-100); POTASSIUM 3.7 mEq/L (3.5-5.2); SODIUM 140 mEq/L (134-144); TOTAL PROTEIN 6.8 g/dL (6.3-8.2)
[2016-11-02] MEDS ORDERED: IOPAMIDOL (ISOVUE-300) 100 ML BTL ONE (17:27)
[2016-11-02 18:47] VITALS: BP 123/87; PULSE 67; TEMP 98.4
== END 2016-11-02 18:48 | disposition home or self-care (01) ==
DX: N83.201 Unspecified ovarian cyst, right side (principal); E86.9 Volume depletion, unspecified
CPT/HCPCS: 96374; J1170; J2405; Q9967

== ENCOUNTER 2017-07-01 15:49 | Emergency (ER) | payer OTHER ==
[2017-07-01 15:54] VITALS: BP 108/66
--- NOTE | 2017-07-01 15:59 | EDPHY ---
H & P Stated Complaint: Lac to right thumb. Time Seen by Provider: 07/01/17 15:58 HPI/ROS: HPI: This is a 36-year-old female who presents with Chief Complaint: Right thumb laceration Location: Right thumb Quality: Laceration Duration: Prior to arrival Signs and Symptoms: + bleeding, no radiation, no numbness, no weakness, no tingling, no incontinence, no decreased range of motion, no swelling, no pain, no fever Timing: Acute Severity: Mild Context: Patient is right-hand dominant, accidentally cut her right thumb sparing the nail while using the mandolin in her kitchen prior to arrival. She reports that she saw lot of blood and had moderate transient pain. She applied direct pressure and it has continued to bleed. Complains of mild increase of pain with range of motion. Reports tetanus is current. Denies paresthesias/ weakness/decreased range of motion. Modifying Factors: Direct pressure Comment: ROS: see HPI Constitutional: No fever, no chills, no weight loss Eyes: No blurred vision Respiratory: No shortness of breath, no cough Cardiovascular: No chest pain Gastrointestinal: No nausea, no vomiting no diarrhea Genitourinary: No dysuria Extremities: No myalgias Neurologic: No weakness, no numbness Skin: No rashes Hematologic: No bruising, no bleeding MEDICAL/SURGICAL/SOCIAL HISTORY: Medical/Surgical history: indigestion, acid reflux in , treated for infertility, situational depression in college (no meds) right and left hip pain in . Social history: Employed. CONSTITUTIONAL: awake and alert, no obvious distress HEENT: Atraumatic and normocephalic, PERRL, EOMI. Nares patent; no rhinorrhea; no nasal mucosal edema. Tympanic membranes clear. Oropharynx clear, no exudate and moist pink mucosa. Airway patent. No lymphadenopathy. No meningismus. Cardiovascular: Normal S1/S2, regular rate, regular rhythm, without murmur rub or gallop. PULMONARY/CHEST: Symmetrical and nontender. Clear to auscultation bilaterally. Good air movement. No accessory muscle usage. ABDOMEN: Soft, nondistended, nontender, no rebound, no guarding, no peritoneal signs, no masses or organomegaly. No CVAT. EXTREMITIES: 2/2 pulses, right thumb 0.5 inch, C-shaped, simple, superficial, laceration at the distal aspect sparing the nail; DIP, PIP, MCP joints have full range of flexion extension with good light touch sensation. strength 5/5, no deformities, no clubbing, no cyanosis or edema. NEUROLOGICAL: no focal neuro deficits. GCS 15. SKIN: Warm and dry, no erythema. no rash. Good capillary refill. Source: Patient Exam Limitations: No limitations - Personal History LMP (Females 10-55): 1-7 Days Ago Current Tetanus Diphtheria and Acellular Pertussis (TDAP): Yes - Medical/Surgical History Hx Asthma: No Hx Chronic Respiratory Disease: No Hx Diabetes: No Hx Cardiac Disease: No Hx Renal Disease: No Hx Cirrhosis: No Hx Alcoholism: No Hx HIV/AIDS: No Hx Splenectomy or Spleen Trauma: No Other PMH: indigestion, acid reflux in preg, treated for infertility, situational depression in college (no meds) right and left hip pain in . - Social History Smoking Status: Never smoked Constitutional: Initial Vital Signs Temperature (C) 36.7 C 07/01/17 15:50 Heart Rate 97 07/01/17 15:50 Respiratory Rate 16 07/01/17 15:50 Blood Pressure 108/66 07/01/17 15:50 O2 Sat (%) 96 07/01/17 15:50 O2 Delivery Mode Room Air Allergies/Adverse Reactions: No Known Allergies Allergy (Unverified 08/22/16 18:54) Home Medications: Medication Instructions Recorded B12/Levomefolate Calcium/B-6 1 each PO 08/22/16 [Foltx Tablet] Doxylamine Succinate [Unisom Sleep 25 mg PO 08/22/16 Aid] Vit27&Calcium/Iron/FA 1 tab PO DAILY 08/22/16 [] Docusate Sodium [Colace 100 MG (*)] 100 mg PO BID PRN #60 cap 08/26/16 Ibuprofen [Motrin (*)] 600 mg PO Q6HRS PRN #60 tab 08/26/16 Hydrocodone/APAP 5/325 [[place] 1 - 2 tab PO Q4-6PRN PRN #7 tab 11/02/16 5/325 (*)] Ondansetron Odt [Zofran Odt 4 mg 4 mg PO Q4PRN PRN #10 tab 11/02/16 (*)] Medical Decision Making Procedures: Procedure: Laceration repair. Verbal consent was obtained from the patient. The 0.5 inch, simple, C-shaped, superficial laceration on the right thumb was anesthetized in the usual fashion using 4 mL of 1% lidocaine without epinephrine. The wound was irrigated, draped and explored to its base with a gloved finger. There were no deep structures involved. No tendon injury was identified. The wound was repaired with #3, 5 0 Prolene. Good hemostasis was achieved and patient tolerated procedure well. Clean sterile dressing applied. The procedure was performed by myself. ED Course/Re-evaluation: Superficial laceration repaired with 3 sutures. Clean sterile dressing applied. Verbal and written wound care instructions provided No signs of neurovascular compromise/tenting of skin/compartment syndrome/ extremities and joints examined above and below area of concern and are neurovascularly intact. This patient was seen under the supervision of my secondary supervising physician. I evaluated care for this patient independently. Differential Diagnosis: Differential diagnosis includes but is not limited to nerve injury, tendon injury, foreign body, nail injury. Departure - Departure Disposition: Home, Routine, Self-Care Clinical Impression: Laceration of right thumb without complication Qualifiers: Encounter type: initial encounter Qualified Code(s): S61.011A - Laceration without foreign body of right thumb without damage to nail, initial encounter Condition: Good Instructions: Finger Laceration (ED), Care For Your Stitches (ED) Additional Instructions: Keep the dressing dry and in place for 48 hours. After 48 hours, you may remove the dressing; wash the site daily with mild soap and water; then pat dry. Take Tylenol 650 mg every 4 hours and/or Ibuprofen 600 mg every 8 hours with food as needed for pain. Wound Care Follow-Up: Removal of sutures in [7-10] days. Suture removal is complimentary in uncomplicated cases. Infection or abnormal findings would require reevaluation by the MD. In that case, you may be billed. Return to the ER immediately if you experience new or worsening pain, discoloration, numbness, tingling, or any other symptoms that concern you. Referrals: Taina Wilson MD [Primary Care Provider] - As per Instructions
== END 2017-07-01 16:45 | disposition home or self-care (01) ==
PROC: 0HQFXZZ Repair Right Hand Skin, External Approach (ICD-10-PCS; principal; 2017-07-01)
DX: S61.011A Laceration without foreign body of right thumb without damage to nail, initial encounter (principal); W27.4XXA Contact with kitchen utensil, initial encounter; Y92.000 Kitchen of unspecified non-institutional (private) residence as the place of occurrence of the external cause; Y99.8 Other external cause status; Y93.89 Activity, other specified

== ENCOUNTER 2017-09-15 18:15 | Emergency (ER) | payer OTHER ==
[2017-09-15 18:23] VITALS: BP 98/65
--- NOTE | 2017-09-15 19:13 | EDPHY ---
H & P Stated Complaint: Sliced R middle finger on mandolin Time Seen by Provider: 09/15/17 18:23 HPI/ROS: CHIEF COMPLAINT: Finger laceration HISTORY OF PRESENT ILLNESS: This is a 36 year old female who presents after cutting her right long finger on a mandolin slidcer (used to cut vegetables). No weakness or numbness reported. Bleeding controlled, she does not take anticoagulants. Tetanus is current. REVIEW OF SYSTEMS: No recent fever, cough, shortness of breath, vomiting, diarrhea, abdominal pain , dysuria. Past medical history: Ruptured ovarian cyst Social history: She lives with her and child. No tobacco use. Employed at [employer]. General Appearance: Alert. Vital signs reviewed. Focused exam. Respiratory: Lungs are clear to auscultation; no wheezes, rales, or rhonchi. Cardiovascular: Regular rate and rhythm; no murmur, rub, or gallop. Skin: Warm and dry, no rashes on exposed skin, normal color. Extremities: "V" shaped flap laceration to right long finger, dorsal aspect, between PIP and DIP. No active bleeding. No tendon deficit. Sensation intact to light touch and two point discrimination. Neurological: Alert and oriented. Moving all four extremities easily and equally. Psychiatric: Normal affect. - Personal History LMP (Females 10-55): 22-28 Days Ago Current Tetanus Diphtheria and Acellular Pertussis (TDAP): Yes - Medical/Surgical History Hx Asthma: No Hx Chronic Respiratory Disease: No Hx Diabetes: No Hx Cardiac Disease: No Hx Renal Disease: No Hx Cirrhosis: No Hx Alcoholism: No Hx HIV/AIDS: No Hx Splenectomy or Spleen Trauma: No Other PMH: indigestion, acid reflux in preg, treated for infertility, situational depression in college (no meds) right and left hip pain in . - Social History Smoking Status: Never smoked Constitutional: Initial Vital Signs Temperature (C) 37 C 09/15/17 18:17 Heart Rate 96 09/15/17 18:17 Respiratory Rate 18 09/15/17 18:17 Blood Pressure 98/65 L 09/15/17 18:17 O2 Sat (%) 100 09/15/17 18:17 O2 Delivery Mode Room Air Allergies/Adverse Reactions: No Known Allergies Allergy (Verified 09/15/17 18:16) Home Medications: Medication Instructions Recorded NK [No Known Home Meds] 09/15/17 Medical Decision Making ED Course/Re-evaluation: Laceration of right long finger, flap that is "V" shaped with two portions of the flap adherent. I do not think that this laceration requires suturing as the overlying skin works as a natural bandage. Wound was cleaned and tube gauze dressing applied by emission technician. No vascular, nerve, or tendon injury. I do not suspect retained foreign body or bony injury. Departure - Departure Disposition: Home, Routine, Self-Care Clinical Impression: Laceration Condition: Good Instructions: Finger Laceration (ED) Additional Instructions: Leave the dressing in place for 24 hr. After that you can gently wash your wound and apply a light dressing/bandaid. Do not let it remain wet for any length of time. It should heal on its own. Referrals: Taina Wilson MD [Primary Care Provider] - As per Instructions
== END 2017-09-15 19:24 | disposition home or self-care (01) ==
DX: S61.212A Laceration without foreign body of right middle finger without damage to nail, initial encounter (principal); W29.0XXA Contact with powered kitchen appliance, initial encounter

== ENCOUNTER 2017-11-12 09:20 | Emergency (ER) | payer OTHER ==
--- NOTE | 2017-11-12 10:29 | EDPHY ---
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 Approximately 6 weeks ago , patient sustained a superficial laceration to the area of concern was seen in this emergency room. No sutures were indicated at that time and the superficial laceration was healed by secondary intention. Patient's brother was diagnosed with MRSA infection approximately 2-3 weeks ago and she is concerned she may be developing an infection. She denies any actual redness, warmth, no drainage, decreased range of motion. LMP 2-3 weeks ago. Modifying Factors: None Comment: ROS: A comprehensive 10 system review of systems is otherwise negative aside from elements mentioned in the history of present illness. MEDICAL/SURGICAL/SOCIAL HISTORY: Medical history: indigestion, acid reflux in , treated for infertility , situational depression in college (no meds) right and left hip pain in . Surgical history: Denies Social history: Nonsmoker CONSTITUTIONAL: Extremely nontoxic-appearing polite and talkative adult white female, awake and alert, no obvious distress HEENT: Atraumatic and normocephalic. NECK: supple EXTREMITIES: 2/2 pulses, strength 5/5, right middle finger anterior aspect inferior to the DI P joint shows 2-3 normal pigmented raised annular bumps near the well-healed linear laceration. No fluctuance/erythema/warm/tenderness/ vesicles. DIP/PIP/MCP flexion/extension intact with good light touch sensation. no deformities, no clubbing, no cyanosis or edema. NEUROLOGICAL: no focal neuro deficits. GCS 15. Light touch sensation intact. SKIN: Warm and dry, no erythema. no rash. Good capillary refill. Source: Patient Exam Limitations: No limitations - Personal History LMP (Females 10-55): 15-21 Days Ago Current Tetanus/Diphtheria Vaccine: Yes Current Tetanus Diphtheria and Acellular Pertussis (TDAP): Yes - Medical/Surgical History Hx Asthma: No Hx Chronic Respiratory Disease: No Hx Diabetes: No Hx Cardiac Disease: No Hx Renal Disease: No Hx Cirrhosis: No Hx Alcoholism: No Hx HIV/AIDS: No Hx Splenectomy or Spleen Trauma: No Other PMH: indigestion, acid reflux in preg, treated for infertility, situational depression in college (no meds) right and left hip pain in . - Social History Smoking Status: Never smoked Constitutional: Initial Vital Signs Temperature (C) 36.8 C 11/12/17 09:29 Heart Rate 69 11/12/17 09:29 Respiratory Rate 16 11/12/17 09:29 Blood Pressure 101/78 11/12/17 09:29 O2 Sat (%) 96 11/12/17 09:29 O2 Delivery Mode Room Air Allergies/Adverse Reactions: No Known Allergies Allergy (Verified 11/12/17 09:29) Home Medications: Medication Instructions Recorded Cephalexin [Keflex (*)] 500 mg PO TID #21 cap 11/12/17 Medical Decision Making ED Course/Re-evaluation: No fluctuance to I and D. No signs of tenosynovitis/martha cellulitis. Will treat with antibiotic prophylaxis for early signs of superficial skin infection. Advised both topical antibiotic ointment/local wound care and oral antibiotics. This patient was seen under the supervision of my secondary supervising physician. I evaluated care for this patient independently. Discussed this patient with Dr. Lopez. Differential Diagnosis: Differential diagnosis includes but is limited to scar tissue, herpes, condyloma , fungal infection, cellulitis. Departure - Departure Disposition: Home, Routine, Self-Care Clinical Impression: Infection of skin of finger Condition: Good Instructions: Wound Infection (ED) Additional Instructions: Wash the site daily with antibacterial soap and water; then pat dry and apply topical antibiotic ointment like Neosporin and keep covered until fully healed. Take Tylenol 650 mg every 4 hours and/or Ibuprofen 600 mg every 8 hours with food as needed for pain. Take Keflex as directed. Do not skip a dose. Follow up with PCP in 5-7 days if no improvement at which time they will re- evaluate. Return to the ER immediately if you experience redness, red streaks, have fevers /chills, flu like symptoms, limited range of motion, or any other symptoms that concern you. Referrals: Taina Wilson MD [Primary Care Provider] - 5-7 days, if not improved Prescriptions: Cephalexin [Keflex (*)] 500 mg PO TID #21 cap
[2017-11-12 11:10] VITALS: BP 108/69
== END 2017-11-12 10:30 | disposition home or self-care (01) ==
DX: L08.9 Local infection of the skin and subcutaneous tissue, unspecified (principal)

== ENCOUNTER 2018-04-15 09:54 | Observation (INO) | payer OTHER ==
[2018-04-15] MEDS ORDERED: NS 1,000 ML IV ONE ×3 (10:51→13:46)
[2018-04-15] MEDS ORDERED: ONDANSETRON 4 MG/2 ML VIAL IVP ONE (10:59)
[2018-04-15 11:07] LABS: PLATELET COUNT 170 10^3/uL (150-400)
--- NOTE | 2018-04-15 11:47 | EDPHY ---
General - History Smoking Status: Never smoked Time Seen by Provider: 04/15/18 11:30 Narrative: CLINICAL IMPRESSION: Hyperemesis gravidarum, urinary tract infection ASSESSMENT/PLAN: Patient is a 37-year-old female who is G2 P 1 currently 10 weeks who presents to the emergency department with 5 days of diarrhea and sudden onset of nausea and vomiting that started yesterday. Patient is afebrile, mildly tachycardic with soft blood pressure on arrival. She is uncomfortable appearing however not toxic-appearing, actively vomiting. Her abdomen is soft, I am unable to elicit any tenderness to palpation. [place] [id number], I suspect secondary to her , no evidence of anemia. BMP grossly unremarkable. HCG quant 83,000. Urinalysis with positive leukocyte esterase, positive nitrites and 4+ bacteria. History and physical examination is consistent with hyperemesis gravidarum, diarrhea and acute UTI. The patient was given 3 L of IV fluid, a Unisom just prior to arrival, Benadryl and Phenergan without control of her nausea and vomiting. Patient with adverse reaction to Zofran in the past, refused here in the emergency department. She was additionally given a g of Rocephin for her acute urinary tract infection, urine was sent for culture. OBGYN was consulted, I spoke with Dr. Hall who will be admit the patient for further observation and management. The patient remained hemodynamically stable, her heart rate normalized and her blood pressure improved prior to transfer to the floor. DIFFERENTIAL DX: Differential diagnosis including but not limited to hyperemesis gravidarum, gastroenteritis, sepsis, urinary tract infection, pyelonephritis ED COURSE: 1315: On repeat examination the patient states she is feeling better, she is requesting oral challenge. Unable to provide UA at this point. 1351: Patient with recurrent emesis. 1414: Discussed case with Dr. Funez, she recommends Phenergan and Benadryl. She does have an appointment scheduled tomorrow morning with her with plans for ultrasound. She does not feel that she needs an ultrasound now with lack of abdominal pain. If her symptoms improve, Dr. Funez feels patient is stable for discharge with close follow-up. Unfortunately she does not have privileges for admission here, will have to consult another group. 1447: Urine positive for leukocyte esterase and nitrates. Urine sent for culture. As patient is unable tolerate p.o. Will give IV Rocephin. 1505: On repeat examination the patient still feeling extremely nauseous, does not feel comfortable going home. Will admit CHIEF COMPLAINT: Nausea, vomiting, diarrhea HPI: Patient is a 37-year-old female who is G2 P 1 currently 10 weeks who presents to the emergency department with 5 days of diarrhea and sudden onset of nausea and vomiting that started yesterday. Patient reports 5 days ago she started to develop watery stool daily, only 1 episode per day. Yesterday patient reports she woke up feeling nauseous what is not typical for her, she typically experiences morning sickness in the afternoon and evening. Her nausea and vomiting persisted throughout the day, all throughout the night to the point where she cannot keep anything down. She thinks she had a possible neuro virus exposure this weekend however unconfirmed. No other sick contacts at home. Patient has felt warm however no recorded temperatures. She denies any hematemesis, chest pain, shortness of breath or abdominal pain at all. She has no vaginal bleeding. She was seen and evaluated by her OBGYN marce Otero last week within normal reported ultrasound. She denies any urinary symptoms to include dysuria, hematuria or frequency. She has had no melena or hematochezia. There has been no recent travel, no recent antibiotic use. PMH: Gravid, denies any medical problems Family History: Noncontributory Social History: Denies alcohol, illicit drug use or cigarette smoking REVIEW OF SYSTEMS: All other systems negative Constitutional: Decreased appetite, denies fever or chills. Eyes: No discharge, vision change ENT: No sore throat, congestion, ear pain. Cardiovascular: No chest pain, no palpitations. Respiratory: No cough, no shortness of breath. Gastrointestinal: Nausea, vomiting and diarrhea. No abdominal pain. Genitourinary: No vaginal bleeding. No hematuria, dysuria, flank pain, pelvic pain. Musculoskeletal: No back pain, joint swelling, joint pain, myalgias. Skin: No rashes, color change. Neurological: No headache, dizziness, weakness. PHYSICAL EXAM: General Appearance: Patient is well-developed, uncomfortable appearing actively vomiting however not toxic-appearing. HENT: Normocephalic, atraumatic. Bilateral external ears are normal. Bilateral tympanic membranes are normal with pearly monroe reflex. Nares are clear, mucosa is pink. Oropharynx is clear however mucosa is very dry, uvula is midline. There is no tonsillar enlargement or exudate. The dentition is normal. Eyes: PERRLA, EOMI intact. Conjunctiva pink, no pallor or injection. Neck: Supple, nontender, no lymphadenopathy, no midline pain, FROM, no meningismus. Respiratory: There are no retractions, lungs are clear to auscultation. Cardiac: Mild tachycardia, no murmurs or gallops. Gastrointestinal: Abdomen is soft, nontender, bowel sounds normal, no masses/ hernia, no rigidity, guarding or focal peritoneal findings. Neurological: Alert and oriented x 3, CN 2-12 grossly intact, normal gait no ataxia, DTR's intact, normal sensation and strength Skin: Warm, dry, no rashes, no nodules on palpation. Musculoskeletal: Extremities are symmetrical, full range of motion, no tenderness, deformity, swelling, or erythema. Psychiatric: Patient is oriented X 3, there is no agitation. MEDICAL DECISION MAKING: Patient was seen independently. Secondary supervising physician at time of evaluation was Dr. Mckeon, he did not evaluate this patient. Diagnosis: Hyperemesis gravidarum, UTI. New, requires workup Summary: See Assessment and Plan for summary of ED visit Clinical lab tests: ordered / reviewed. Independent visualization of images, tracing, or specimens: Not applicable. Decision to obtain medical records or history from someone other than the patient: Yes, Review / Summarize previous medical records: Yes Discussed patient with another provider: Yes, Dr. Mckeon, Dr. Pieter Dove , Dr. Hall Patient Progress: Stable, admit. (Tri Rangel) Medical Decision Making: I did not see this patient while she was in the emergency department. However her care was discussed with the PA while the patient was in the department. I agree with treatment plan and management (Simone Mckeon) - Objective Vital Signs: Initial Vital Signs Temperature (C) 37.3 C 04/15/18 10:14 Heart Rate 107 H 04/15/18 10:14 Respiratory Rate 18 04/15/18 10:14 Blood Pressure 92/68 L 04/15/18 10:14 O2 Sat (%) 97 04/15/18 10:14 O2 Delivery Mode Room Air Allergies/Adverse Reactions: No Known Allergies Allergy (Verified 04/15/18 10:13) Home Medications: Medication Instructions Recorded Doxylamine Succinate [Unisom] 25 mg PO BID 04/15/18 Herbals/Supplements -Info Only 1 ea PO DAILY 04/15/18 Vitamin B Complex [Vitamin B 1 each PO BID 04/15/18 Complex (OTC)] Laboratory Results: Laboratory Results 04/15/18 10:50 04/15/18 10:50 04/15/18 04/15/18 04/15/18 13:30 10:50 10:50 WBC RBC Hgb Hct MCV MCH MCHC RDW Plt Count MPV Neut % (Auto) Lymph % (Auto) [place] % (Auto) Eos % (Auto) Baso % (Auto) Nucleat RBC Rel Count Absolute Neuts (auto) Absolute Lymphs (auto) Absolute Monos (auto) Absolute Eos (auto) Absolute Basos (auto) Absolute Nucleated RBC Immature Gran % Immature Gran # RBC/WBC/PLT Morphology Platelet Estimate Sodium Potassium Chloride Carbon Dioxide Anion Gap BUN Creatinine Estimated GFR Glucose Calcium Lipase Beta HCG, Qual POSITIVE Beta HCG, Quant 03546.00 mIU/mL H mIU/mL (0.00-4.83) Urine Color YELLOW Urine Appearance MODERATELY TURBID Urine pH 5.0 (5.0-7.5) Ur Specific [place] 1.024 (1.002-1.030) Urine Protein NEGATIVE (NEGATIVE) Urine Ketones TRACE H (NEGATIVE) Urine Blood 1+ H (NEGATIVE) Urine Nitrate POSITIVE H (NEGATIVE) Urine Bilirubin NEGATIVE (NEGATIVE) Urine Urobilinogen NEGATIVE EU EU (0.2-1.0) Ur Leukocyte Esterase 2+ H (NEGATIVE) Urine RBC 3-5 /hpf H /hpf (0-3) Urine WBC 10-15 /hpf H /hpf (0-3) Ur Epithelial Cells TRACE /lpf /lpf (NONE-1+) Urine Bacteria 4+ /hpf H /hpf (NONE SEEN) Urine Mucus 4+ /lpf H /lpf (NONE-1+) Urine Glucose NEGATIVE (NEGATIVE) 04/15/18 04/15/18 10:50 10:50 WBC 12.81 10^3/uL H 10^3/uL (3.80-9.50) RBC 5.31 10^6/uL 10^6/uL (4.18-5.33) Hgb 15.5 g/dL g/dL (12.6-16.3) Hct 44.2 % % (38.0-47.0) MCV 83.2 fL fL (81.5-99.8) MCH 29.2 pg pg (27.9-34.1) MCHC 35.1 g/dL g/dL (32.4-36.7) RDW 13.7 % % (11.5-15.2) Plt Count 170 10^3/uL 10^3/uL (150-400) MPV 9.5 fL fL (8.7-11.7) Neut % (Auto) 92.9 % H % (39.3-74.2) Lymph % (Auto) 3.8 % L % (15.0-45.0) Garland % (Auto) 2.8 % L % (4.5-13.0) Eos % (Auto) 0.0 % L % (0.6-7.6) Baso % (Auto) 0.1 % L % (0.3-1.7) Nucleat RBC Rel Count 0.0 % % (0.0-0.2) Absolute Neuts (auto) 11.90 10^3/uL H 10^3/uL (1.70-6.50) Absolute Lymphs (auto) 0.49 10^3/uL L 10^3/uL (1.00-3.00) Absolute Monos (auto) 0.36 10^3/uL 10^3/uL (0.30-0.80) Absolute Eos (auto) 0.00 10^3/uL L 10^3/uL (0.03-0.40) Absolute Basos (auto) 0.01 10^3/uL L 10^3/uL (0.02-0.10) Absolute Nucleated RBC 0.00 10^3/uL 10^3/uL (0-0.01) Immature Gran % 0.4 % % (0.0-1.1) Immature Gran # 0.05 10^3/uL 10^3/uL (0.00-0.10) RBC/WBC/PLT Morphology TNP Platelet Estimate TNP Sodium 134 mEq/L L mEq/L (135-145) Potassium 3.9 mEq/L mEq/L (3.5-5.2) Chloride 106 mEq/L mEq/L (97-110) Carbon Dioxide 19 mEq/l L mEq/l (22-31) Anion Gap 9 mEq/L mEq/L (6-14) BUN 12 mg/dL mg/dL (7-23) Creatinine 0.4 mg/dL L mg/dL (0.6-1.0) Estimated GFR > 60 Glucose 114 mg/dL H mg/dL (70-100) Calcium 8.8 mg/dL mg/dL (8.5-10.4) Lipase 72 IU/L IU/L (23-300) Beta HCG, Qual Beta HCG, Quant Urine Color Urine Appearance Urine pH Ur Specific [place] Urine Protein Urine Ketones Urine Blood Urine Nitrate Urine Bilirubin Urine Urobilinogen Ur Leukocyte Esterase Urine RBC Urine WBC Ur Epithelial Cells Urine Bacteria Urine Mucus Urine Glucose Medications Given: Discontinued Medications Diphenhydramine HCl (Benadryl Injection) 25 mg IVP EDNOW ONE Stop: 04/15/18 14:16 Last Admin: 04/15/18 14:24 Dose: 25 mg Sodium Chloride (Ns) 1,000 mls @ 0 mls/hr IV ONCE ONE PRN Reason: Wide Open Stop: 04/15/18 10:52 Last Admin: 04/15/18 10:51 Dose: 1,000 mls Sodium Chloride (Ns) 1,000 mls @ 0 mls/hr IV EDNOW ONE; Wide Open PRN Reason: Protocol Stop: 04/15/18 11:00 Last Admin: 04/15/18 11:12 Dose: 1,000 mls Sodium Chloride (Ns) 1,000 mls @ 0 mls/hr IV ONCE ONE PRN Reason: Wide Open Stop: 04/15/18 13:47 Last Admin: 04/15/18 13:46 Dose: 1,000 mls Ceftriaxone Sodium/Dextrose (Rocephin 1 Gm (Premix)) 50 mls @ 100 mls/hr IV EDNOW ONE PRN Reason: Protocol Stop: 04/15/18 15:32 Last Admin: 04/15/18 15:11 Dose: 50 mls Ondansetron HCl (Zofran) 4 mg IVP EDNOW ONE Stop: 04/15/18 11:00 Last Admin: 04/15/18 11:09 Dose: Not Given Promethazine HCl (Phenergan) 12.5 mg IVP ONCE ONE Stop: 04/15/18 14:13 Last Admin: 04/15/18 14:24 Dose: 12.5 mg Departure - Departure Disposition: [facility]
[2018-04-15] MEDS ORDERED: PROMETHAZINE HCL 25 MG/ML INJ IVP ONE (14:12)
[2018-04-15] MEDS ORDERED: hydrOXYzine HCL 25 MG TAB PO PRN (20:41)
[2018-04-15] MEDS ORDERED: PYRIDOXINE HCL 25 MG TAB PO PRN (20:51)
[2018-04-15] MEDS ORDERED: D5W NS 1,000 ML IV SCH (21:00)
[2018-04-15] MEDS: PROMETHAZINE HCL 25 MG/ML INJ IVP PRN (21:16)
--- NOTE | 2018-04-15 21:30 | GHP ---
[f rep st] HISTORY AND PHYSICAL DATE OF ADMISSION: 04/15/2018 ADMITTING DIAGNOSES: 1. Intrauterine at 10 weeks. 2. Nausea, vomiting, diarrhea. HISTORY OF PRESENT ILLNESS: Patient is a 37-year-old, G2, P1-0-0-1 at 10 weeks with an estimated due date 11/09/2018, by ultrasound done at 8 weeks. The patient gets her care with Dr. Saha but presented to the emergency room tonight at [facility] with complaints of 5 days of diarrhea. She states her last episode of loose stool was this morning at 8 a.m. The patient is also complaining of sudden onset of nausea and vomiting that started yesterday. She states she has vomited 12 times in the last 24 hours. Last episode of vomiting was about an hour ago. Patient is unable to keep any food or liquids down all day. She was able to keep down apple juice not too long ago. The patient denies any fevers or chills. The patient denies any leakage of fluid, vaginal bleeding, any menstrual-type cramping or abdominal pain. The patient states she just visited her grandmother in a assisted. She denies eating anything abnormal or having food poisoning at this time. In the emergency room, patient was given 3 L of IV fluids. She had taken a Unisom prior to arrival, and was given Benadryl and Phenergan without control of her nausea and vomiting. Patient had an adverse reaction to Zofran in the past and refused it in the emergency department. She was given a gram of Rocephin for urinary tract infection. PAST OB HISTORY: In July 2016, she had a vacuum-assisted vaginal delivery at 40 + weeks and then had a retained placenta requiring curettage. GYNECOLOGIC HISTORY: Age of menarche was 12-13. Cycles are irregular. Patient denies a history of abnormal Pap smears or any exposure to STDs. CURRENT MEDICATIONS: Include vitamins, Unisom and Vit B complex. ALLERGIES: No known drug allergies. PAST MEDICAL HISTORY: Remarkable for depression. PAST SURGICAL HISTORY: [place] teeth extraction. FAMILY HISTORY: Depression, vascular disease. SOCIAL HISTORY: Patient is and lives with her and their daughter. She denies any current alcohol, tobacco, or illicit drug use. LABORATORY: WBC 12.81, H and H, 15.5 and 44.2, platelets 170. BMP shows a sodium low at 134. Urine with trace ketones, 1+ blood, positive nitrates, 2+ leuk esterase,and was sent for culture. STUDIES: None. REVIEW OF SYSTEMS: A 10-point review of systems is negative. Pertinent positives noted in HPI. PHYSICAL EXAMINATION: VITAL SIGNS: On admission, vital signs are stable. The patient's temperature is 37.3, heart rate 91, respiration rate 14, blood pressure 99/61. GENERAL APPEARANCE: The patient is well-nourished, well- developed female. She is nontoxic appearing, but appears ill. SKIN: Warm, dry without rash. NEURO: Grossly intact. CARDIOVASCULAR: Regular rate and rhythm. LUNGS: Clear to auscultation bilaterally. ABDOMEN: Soft, nontender, nondistended. PELVIC: Deferred at this time. EXTREMITIES: Normal to inspection without calf tenderness or edema. ASSESSMENT AND PLAN: Patient is a 37-year-old, G2, P1-0-0-1 at 10 weeks gestation by 8-week ultrasound, who presents with nausea, vomiting, diarrhea. 1. Admit to Mother Baby for observation. 2. Discussed this is likely not hyperemesis gravidarum since acute onset in the last 24 hours and likely a GI virus. 3. Will continue intravenous fluids, but switch to D5 normal saline. 4. Will continue Phenergan intravenous since the patient is getting some relief. Will add vitamin B6 as well as Vistaril orally as needed for nausea and vomiting. 5. Advance diet as tolerated. Discussed starting with crackers and small frequent meals and to start that in the morning. 6. The patient is hemodynamically stable at this time. /[id number]/MODL MTDD
[2018-04-16] MEDS: PROMETHAZINE HCL 25 MG/ML INJ IVP PRN (05:06)
[2018-04-16 08:48] VITALS: BP 100/58
--- NOTE | 2018-04-16 09:27 | POSTOPPROG ---
Post Op Note Date of Operation: 04/16/18 Surgeon: Mary Kay Hines
--- NOTE | 2018-04-16 10:11 | SOAPPROG ---
SOAP Progress Note Assessment/Plan: Assessment: 37 at 10w1d with likely viral gastroenteritis. No vomiting or diarrhea overnight. Plan: DC home. Reviewed hydration precautions. Mary Kay calvo MD, [facility] 04/16/18 10:07 Subjective: Pt doing well - just ate breakfast - eggs, yogurt, and more, and has all stayed down. No vomiting or diarrhea since last night. Objective: Vital Signs Temp Pulse Resp BP Pulse Ox 37.3 C 101 H 18 100/58 L 97 04/16/18 08:00 04/16/18 08:00 04/16/18 08:00 04/16/18 08:00 04/16/18 08:00 04/15/18 04/16/18 04/17/18 05:59 05:59 05:59 Intake Total 4350 Output Total 150 Balance 4200 Tm 37.3 gen - pleasant, NAD CV - RRR chest - CTAB abd - soft, NT, ND, +NABS ext - calves NT, Jo's neg - Time Spent With Patient Time Spent With Patient: 10 min - Pending Discharge Pending Discharge Within 24 Hours: Yes Pending Discharge Within 48 Hours: Yes Pending Discharge Date: 04/17/18 Pending Discharge Time: 11:00 ICD10 Worksheet Patient Problems: Problems Problem Status Onset Chorioamnionitis in third trimester Acute hemorrhage Acute Retained placenta Acute Vacuum extractor delivery, delivered Acute
--- NOTE | 2018-04-16 10:24 | PDDCSUM ---
Discharge Summary Discharge Summary: Admit - 04/15/18 Discharge - 04/16/18 Diagnosis - Nausea and vomiting - likely viral gastroenteritis, at 10 weeks gestation. Possible UTI. Pt was given IV hydration and hydroxyzine, and by the morning of 04/16/18, she was tolerating a regular diet. She received 1 gm of Rocephin in the ED for possible UTI. Folllow up - reg Ob provider in the next week. Instructions - hydration precautions.
== END 2018-04-16 15:00 | disposition home or self-care (01) ==
LOC: FOB 16:20
PROVIDERS: ADMIT Obstetrics & Gynecology; ATTEND Hospitalist
DX: R11.2 Nausea with vomiting, unspecified (principal); R19.7 Diarrhea, unspecified; E86.0 Dehydration; N39.0 Urinary tract infection, site not specified; Z3A.10 10 weeks gestation of pregnancy
CPT/HCPCS: 96361; 96365; 96375; 96376; 99285; G0378; J0696; J1200; J2550

== ENCOUNTER → 2018-06-23 | Outpatient (CLI) | payer OTHER | LOC: FIMAGING 07:39 | PROVIDERS: ATTEND Obstetrics & Gynecology | DX: O09.522 Supervision of elderly multigravida, second trimester (principal); O43.122 Velamentous insertion of umbilical cord, second trimester; Z3A.20 20 weeks gestation of pregnancy ==